=== PATIENT | male | born 1945 | race Caucasian/White ===

== ENCOUNTER 2019-03-08 16:22 | Emergency (ER) | payer MEDICARE, BC ==
--- NOTE | 2019-03-08 17:13 | ED ---
Syncope/Near Syncope - HPI Summary HPI Summary: This patient is a 73 year old M presenting to [facility] accompanied by with a chief complaint of syncope prior to arrival. Pt had a bike ride, and then sat down. When standing up he lost conscious and pt hit head. Patient reports dizziness. Patient denies CP, SOB. Pt takes eliquis. Per triage, the patient rates the pain 4/10 in severity. - History Of Current Complaint Chief Complaint: EDHeadInjury Time Seen by Provider: 03/08/19 16:52 Hx Obtained From: Patient Onset/Duration: Sudden Onset, Resolved Timing: Frequency Of Episodes - dizziness Context: Loss Of Consciousness Activity At Onset: Other - Was standing up Associated Head Trauma: Yes Associated Signs And Symptoms: Negative - Chest Pain, SOB, Dizzy - Allergies/Home Medications Allergies/Adverse Reactions: Allergies Allergy/AdvReac Type Severity Reaction Status Date / Time No Known Allergies Allergy Verified 03/08/19 16:27 PMH/Surg Hx/FS Hx/Imm Hx Cardiovascular History: Reports: Hx Atrial Fibrillation Sensory History: Denies: Hx Legally Blind EENT History: Denies: Hx Deafness - Surgical History Surgery Procedure, Year, and Place: Cardioversion - Immunization History Immunizations Up to Date: Yes Infectious Disease History: No Infectious Disease History: Denies: Traveled Outside the [place] in Last 30 Days - Social History Occupation: Retired Alcohol Use: Rare Hx Substance Use: Yes Substance Use Type: Reports: Marijuana Hx Tobacco Use: No Smoking Status (MU): Never Smoked Tobacco Review of Systems Negative: Chest Pain Negative: Shortness Of Breath Positive: Other - pain in head Neurological: Other - dizzy Positive: Syncope All Other Systems Reviewed And Are Negative: Yes Physical Exam - Summary Physical Exam Summary: GENERAL: Patient is a well-developed and nourished M who is lying comfortable in the stretcher. Patient is not in any acute respiratory distress. HEAD AND FACE: Normocephalic EYES: PERRLA, EOMI x 2. EARS: Hearing grossly intact. MOUTH: Oropharynx within normal limits. NECK: Supple, trachea is midline, no adenopathy, no JVD, no carotid bruit. CHEST: Symmetric, no tenderness at palpation LUNGS: Clear to auscultation bilaterally. No wheezing or crackles. CVS: Regular rate and rhythm, S1 and S2 present, no murmurs or gallops appreciated. ABDOMEN: Soft, non-tender. Bowel sounds are normal. No abnormal abdominal pulsations. EXTREMITIES: Full ROM in all major joints, no edema, no cyanosis or clubbing. NEURO: Alert and oriented x 3. No acute neurological deficits. Speech is normal and follows commands. SKIN: Dry and warm Triage Information Reviewed: Yes Vital Signs On Initial Exam: Initial Vitals Temp Pulse Resp BP Pulse Ox 98.8 F 64 18 127/82 97 03/08/19 16:22 03/08/19 16:22 03/08/19 16:22 03/08/19 16:22 03/08/19 16:22 Vital Signs Reviewed: Yes - Huffman Coma Scale Best Eye Response: 4 - Spontaneous Best Motor Response: 6 - Obeys Commands Best Verbal Response: 5 - Oriented Coma Scale Total: 15 Diagnostics - Vital Signs Vital Signs Temp Pulse Resp BP Pulse Ox 03/08/19 16:22 98.8 F 64 18 127/82 97 - Laboratory Lab Statement: Any lab studies that have been ordered have been reviewed, and results considered in the medical decision making process. - CT Brain CT CT Interpretation Completed By: Radiologist Summary of CT Findings: Brain CT reveals, per radiologist, IMPRESSION: There is no evidence of intracranial mass or hemorrhage. ED physician has reviewed this radiology report. - EKG 1659 Cardiac Rate: NL - 88 bpm EKG Rhythm: Sinus Rhythm Summary of EKG Findings: An EKG reveals NSR 88, prolonged QT, nonspecific T- wave changes. Re-Evaluation - Re-Evaluation First Eval Re-Evaluation Time: 17:19 Comment: Pt was advised about the risks of leaving AMA. Course/Dx Course Of Treatment: This patient is a 73 year old M presenting to [facility] accompanied by with a chief complaint of syncope prior to arrival. An EKG reveals NSR 88, prolonged QT, nonspecific T-wave changes. Brain CT reveals, per radiologist, IMPRESSION: There is no evidence of intracranial mass or hemorrhage. Pt was advised about the risks of leaving AMA, and that even though the Brain CT was negative, there is a serious possibility of a delayed brain bleed. Pt declined all blood work, and further testing. The pt will be discharged AGAINST MEDICAL ADVISE. - Diagnoses Provider Diagnoses: Syncope, Head injury Discharge - Sign-Out/Discharge Documenting (check all that apply): Patient Departure - AMA Patient Received Moderate/Deep Sedation with Procedure: No - Discharge Plan Condition: Fair Disposition: AGAINST MEDICAL ADVICE Patient Education Materials: Syncope (ED), Head Injury (ED) Referrals: No Primary Care Phys,NOPCP [Primary Care Provider] - Additional Instructions: Follow up with your primary care physician in 1-3 days. RETURN TO THE EMERGENCY DEPARTMENT FOR CHANGING OR WORSENING SYMPTOMS. - Billing Disposition and Condition Condition: FAIR Disposition: Against Medical Advice - Attestation Statements Document Initiated by Scribe: Yes Documenting Scribe: Leanne Coto Provider For Whom Brendan is Documenting (Include Credential): Dr. Martín Andrade MD Scribe Attestation: Leanne Nunez scribed for Dr. Martín Andrade MD on 03/09/19 at 0805. Scribe Documentation Reviewed: Yes Provider Attestation: The documentation as recorded by the Leanne cox accurately reflects the service I personally performed and the decisions made by , Dr. Martín Andrade MD Status of Scribe Document: Viewed
[2019-03-08 17:38] VITALS: BP 127/76
== END 2019-03-08 17:39 | disposition left against medical advice (07) ==
LOC: ED 16:22
DX: R55 Syncope and collapse (principal); S09.90XA Unspecified injury of head, initial encounter; W22.8XXA Striking against or struck by other objects, initial encounter; Y92.9 Unspecified place or not applicable; I48.91 Unspecified atrial fibrillation
CPT/HCPCS: 70450; 93005; 99282